=== PATIENT | female | born 1940 | race Two or more races ===

== ENCOUNTER 2024-02-23 11:45 | Emergency (ER) | payer MEDICARE, OTHER ==
[~2024-02-23] VITALS: Ht 160 cm; Wt 70.0 kg
[2024-02-23 13:28] VITALS: BP 173/93; PULSE 75; RESP 17; TEMP 98; O2SAT 99
[2024-02-23] MEDS ORDERED: LIDO5DIS21 TOP (13:42)
== END 2024-02-23 13:57 | disposition home or self-care (01) ==
LOC: ER 11:45
DX: R07.81 Pleurodynia (principal); Z88.2 Allergy status to sulfonamides; W01.0XXA Fall on same level from slipping, tripping and stumbling without subsequent striking against object, initial encounter; Y93.89 Activity, other specified; Y92.090 Kitchen in other non-institutional residence as the place of occurrence of the external cause; Y99.8 Other external cause status
CPT/HCPCS: 71046